=== PATIENT | female | born 1955 | race Caucasian/White ===

== ENCOUNTER → 2018-04-15 | Outpatient (CLI) | payer SELFPAY ==
--- NOTE | 2018-04-15 10:53 | RAD ---
EXAM DESCRIPTION: Knee,Left Complete CLINICAL HISTORY: 63 years Female, PAIN IN LEFT KNEE TECHNIQUE: 4 views of the left knee were performed. COMPARISON: None available. FINDINGS: The visualized bones appear well mineralized. No acute fracture or dislocation. No evidence of suprapatellar joint effusion. The soft tissues appear grossly unremarkable. 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 Chondrocalcinosis is noted. IMPRESSION: Tricompartmental osteoarthritis worse in the medial tibiofemoral compartment. Chondrocalcinosis is noted. Electronically signed by: Alayna Small MD 04/15/2018 10:51 AM CDT
--- NOTE | 2018-04-15 10:53 | RAD ---
EXAM DESCRIPTION: Pelvis CLINICAL HISTORY: 63 years Female, PAIN IN LEFT HIP COMPARISON: None. TECHNIQUE: AP radiograph of the pelvis was performed. FINDINGS: The pelvic ring appears grossly intact on this single AP radiograph. No acute fracture or dislocation. Bilateral sacroiliac joints appear normal. Bilateral hip joints appear normal. The visualized lumbo-sacral spine demonstrates mild degenerative changes. IMPRESSION: Single AP radiograph of the pelvis demonstrates grossly intact pelvic ring. Electronically signed by: Alayna Small MD 04/15/2018 10:52 AM CDT
== END ==
LOC: RAD 09:16
PROVIDERS: ATTEND Orthopaedic Surgery
DX: M17.12 Unilateral primary osteoarthritis, left knee (principal); M25.562 Pain in left knee; M25.552 Pain in left hip

== ENCOUNTER 2018-08-07 05:01 | Inpatient (IN) | payer OTHER ==
--- NOTE | 2018-08-03 14:22 | HP ---
CHIEF COMPLAINT: Left knee pain. HISTORY OF PRESENT ILLNESS: Janette is a 63 year-old female with a history of severe knee pain. Janette's knee pain has been getting progressively worse and she has had conservative measures inclusive of both injections and arthroscopy. Unfortunately she has failed to gain relief. Because of her failure of relief she has requested operative intervention. After discussing the risks, benefits, and alternatives to that she has given informed consent for that. PAST SURGICAL HISTORY: 1. Knee arthroscopy. CURRENT MEDICATIONS: 1. Potassium. 2. Singulair. 3. Tylenol #4. ALLERGIES: NO KNOWN DRUG ALLERGIES. CODE STATUS: FULL CODE. IMMUNIZATIONS: Up to date. FAMILY HISTORY: None pertinent to today's complaints. SOCIAL HISTORY: She does not drink or use illicit drugs. She does smoke. REVIEW OF SYSTEMS: Negative except as indicated in History of Present Illness. PHYSICAL EXAMINATION: VITAL SIGNS: Blood pressure 149/72, pulse 63. Height 5' 6", weight 213. MENTAL STATUS: The patient is awake, alert, and is able to give a good history and participate in the physical. The patient is oriented to person, place and time. SKIN: Normal tone and turgor. HEENT: Normocephalic, atraumatic. Pupils equal, round and reactive. Mucosal membranes are moist. NECK: Normal range of motion. No thyromegaly, no lymphadenopathy. CHEST: Normal respiratory excursion. CARDIAC: Regular rate and rhythm. No murmurs, rubs or gallops. MUSCULOSKELETAL: She is extremely tender to palpation both medially and laterally. She has extension that is full but flexion is to about 100 degrees. She has crepitus throughout her range of motion. She has no varus, valgus, anterior or posterior laxity. There is very slight varus deformity. Bilateral upper extremities show full active range of motion without pain. She has intact sensation in both. She has 5/5 strength in both extremities and they are warm and well perfused. The right lower extremity shows full range of motion in the hip. Sensation is intact. It is warm and well perfused. X-RAYS: X-rays show arthritis but no acute bony abnormality. ASSESSMENT: 1. Arthritis. PLAN: The plan at this point is for total knee arthroplasty. We have discussed the risks, benefits, and alternatives to that and she has given informed consent for that. #[id number] [facility]
[2018-08-07] MEDS ORDERED: ceFAZolin SODIUM 1 GM VIAL ONE ×2 (06:14→06:24)
[2018-08-07] MEDS ORDERED: TRANEXAMIC ACID 1,000 MG/10 ML VIAL ONE ×2 (06:23→06:36)
[2018-08-07] MEDS ORDERED: SODIUM CHL 0.9% 100ML MINI-BAG 100 ML IVPB ONE (06:23)
[2018-08-07] MEDS ORDERED: LACTATED RINGERS 1,000 ML ONE (06:23)
[2018-08-07] MEDS ORDERED: SODIUM CHLORIDE 0.9% 250ML 250 ML ONE ×3 (06:24→19:45)
[2018-08-07] MEDS ORDERED: VANCOMYCIN HCL INJ 1,000 MG VIAL IVPB ONE ×3 (06:24→19:45)
[2018-08-07] MEDS ORDERED: SODIUM CHLORIDE 0.9% 100ML 100 ML IVPB ONE (06:24)
[2018-08-07] MEDS ORDERED: LEVALBUTEROL NEBS 1.25 MG/3 ML VIAL NEB ONE ×2 (06:26→09:51)
[2018-08-07] MEDS ORDERED: MIDAZOLAM INJ 2 MG/2 ML VIAL ONE (06:26)
[2018-08-07] MEDS ORDERED: fentaNYL CITRATE INJ 50 MCG/ML AMP ONE (06:27)
[2018-08-07] MEDS ORDERED: ACETAMINOPHEN IV 1000MG 100 ML ONE (06:27)
[2018-08-07] MEDS ORDERED: MORPHINE SULF *EPIDURAL* 1 MG/ML VIAL ONE (06:27)
[2018-08-07] MEDS ORDERED: BISACODYL SUPPOSITORY 10 MG PR PRN (07:00)
[2018-08-07] MEDS ORDERED: MORPHINE PCA 1 MG/ML 100 ML BAG IVPB SCH (07:00)
[2018-08-07] MEDS ORDERED: MORPHINE SULFATE INJ 10 MG/ML VIAL IM PRN (07:00)
[2018-08-07] MEDS ORDERED: PROMETHAZINE HCL INJ 25 MG in SODIUM CHLORIDE 0.9% 50ML 50 ML IVPB PRN (07:00)
[2018-08-07] MEDS ORDERED: traMADol HCL 50 MG TAB PO PRN (07:00)
[2018-08-07] MEDS ORDERED: ALUMINUM & MAGNESIUM HYDROXIDE 30 ML UD PO PRN (07:00)
[2018-08-07] MEDS ORDERED: PROMETHAZINE HCL INJ 12.5 MG in SODIUM CHLORIDE 0.9% 50ML 50 ML IVPB PRN (07:00)
[2018-08-07] MEDS ORDERED: MORPHINE SULFATE INJ 10 MG/ML VIAL IV PRN (07:00)
[2018-08-07] MEDS ORDERED: ACETAMINOPHEN 500 MG TAB PO PRN (07:00)
[2018-08-07] MEDS ORDERED: ZOLPIDEM TARTRATE 5 MG TAB PO PRN (07:00)
[2018-08-07] MEDS ORDERED: NALOXONE HCL INJ 0.4 MG/ML VIAL IV PRN (07:00)
[2018-08-07] MEDS ORDERED: BENZOCAINE-MENTH LOZ (CEPACOL) 1 EA LOZ MT PRN (07:00)
[2018-08-07] MEDS ORDERED: ACETAMINOPHEN 325 MG TAB PO PRN (07:00)
[2018-08-07] MEDS ORDERED: MAGNESIUM HYDROXIDE 30 ML UD PO PRN (07:00)
[2018-08-07] MEDS ORDERED: TRANEXAMIC ACID INJ 1,000 MG in SODIUM CHLORIDE 0.9% 100ML 100 ML IVPB ONE (07:00)
[2018-08-07] MEDS ORDERED: DEX 5% W/NACL 0.45% 1000ML 1,000 ML IVS PRN (07:00)
[2018-08-07] MEDS ORDERED: TEMAZEPAM 15 MG CAP PO PRN (07:00)
[2018-08-07] MEDS ORDERED: SODIUM CHLORIDE 0.9% (FLUSH) 10 ML SYG IV PRN (07:00)
[2018-08-07] MEDS: ceFAZolin SODIUM 1 GM VIAL ONE ×2 (08:00→08:46)
[2018-08-07] MEDS: VANCOMYCIN HCL INJ 1,000 MG VIAL IVPB ONE ×2 (08:00→08:46)
[2018-08-07] MEDS: BUPIVACAINE LIPOSOME 13.3 MG/ML VIAL INJ ONE ×2 (08:01→08:44)
[2018-08-07] MEDS: BUPIVACAINE 0.5% 30 ML VIAL INJ ONE ×2 (08:01→08:44)
[2018-08-07] MEDS ORDERED: BUPIVACAINE LIPOSOME 13.3 MG/ML VIAL INJ ONE (08:49)
[2018-08-07] MEDS ORDERED: ELECTROLYTE-A 1,000 ML IVS ONE (09:12)
[2018-08-07] MEDS ORDERED: METOCLOPRAMIDE HCL INJ 10 MG/2 ML VIAL IV ONE (10:00)
[2018-08-07] MEDS ORDERED: LIDOCAINE 1% 10 ML VIAL INJ ONE (10:00)
[2018-08-07] MEDS ORDERED: raNITIdine HCL INJ 25 MG/ML VIAL IV ONE (10:00)
[2018-08-07] MEDS ORDERED: ePHEDrine SULF 50 MG/ML IV ONE (10:00)
[2018-08-07] MEDS ORDERED: DEXAMETHASONE INJ 10 MG/ML VIAL IV ONE (10:00)
--- NOTE | 2018-08-07 10:26 | OP ---
DATE OF PROCEDURE: 08/07/18 PREOPERATIVE DIAGNOSIS: 1. Osteoarthritis of the left knee. POSTOPERATIVE DIAGNOSIS: 1. Osteoarthritis of the left knee. PROCEDURE: 1. Left total knee arthroplasty. SURGEON: Travis Cedillo MD. BUSINESS MACHINE OPERATOR: Seun Valadez CST, SA-C. ANESTHESIA: General anesthesia. COMPLICATIONS: None. FINDINGS: Severe arthritis of the knee. INDICATION: Janette has a long history of severe pain in the knee which has been refractory to conservative measures. She has requested operative intervention secondary to that failure. After discussing the risks, benefits and alternatives to that, the patient has given informed consent for total knee arthroplasty. PROCEDURE: The patient was brought to the Operating Room and placed in supine position. General anesthesia was induced and the patient's leg was sterilely prepped and draped. Following prepping and draping, the distal femur was exposed and using an intramedullary guide, the distal femoral cut was made. The appropriate sized cutting block was measured, pinned into place, and the anterior, posterior, and chamfer cuts were made. The ACL was transected and the tibia was subluxed. Both the medial and lateral menisci were removed. An intramedullary guide was used to make the proximal tibial cut. The appropriate sized base plate was placed and a trial polyethylene was placed. The trial femur was placed, the knee was reduced, and the knee was taken through a range of motion. The knee was stable in anterior, posterior, varus and valgus stress. The patella tracked anatomically without evidence of subluxation or dislocation. After trialing, the trial components were removed and the bony surfaces were thoroughly irrigated with saline. Following irrigation, the surfaces were dried and the final components were cemented into place. The excess cement was removed and the remaining cement was allowed to cure. The knee was again taken through a range of motion to confirm stability. The wound was then irrigated with saline and closure was performed using PDS to approximate the arthrotomy followed by closure of the subcutaneous tissues with a combination of running and interrupted Monocryl sutures. Sterile dressing was placed. The patient was awoken from anesthesia and taken to Recovery. POSTOPERATIVE PLAN: The patient will be weight-bearing as tolerated on postoperative day 1. COMPONENTS: Zogenix Triathlon knee, size 4 femur, size 4 tibia, 11 mm insert. #[id number] [facility]
--- NOTE | 2018-08-07 11:58 | RAD ---
EXAM DESCRIPTION: Knee,Left 2 or More Views CLINICAL HISTORY: TKA COMPARISON: 15 Apr 2018 TECHNIQUE: 2 views left FINDINGS: A left total knee arthroplasty is observed in place. Positioning is near-anatomic. Postoperative air is observed anteriorly IMPRESSION: New left total knee arthroplasty. Electronically signed by: Yaron Portillo MD 08/07/2018 11:56 AM CDT
[2018-08-07] MEDS: ONDANSETRON INJ 4 MG/2 ML VIAL IV PRN (12:43)
[2018-08-07] MEDS: CELECOXIB 100 MG CAP PO SCH ×2 (13:33→18:42)
[2018-08-07] MEDS: MAGNESIUM OXIDE 400 MG TAB PO SCH (13:33)
[2018-08-07] MEDS: IV SET AND CAP CHANGE INJ INJ SCH (13:33)
[2018-08-07] MEDS ORDERED: ceFAZolin SODIUM 2 GRAMS PREMI 50 ML IVPB ONE ×3 (13:38→19:45)
[2018-08-07] MEDS: ceFAZolin SODIUM 2 GRAMS PREMI 2 GM in PREMIX BAG 1 BAG IVPB SCH ×2 (14:02→22:01)
--- NOTE | 2018-08-07 15:06 | CONS ---
SUPERVISING PHYSICIAN: Meng Amado MD DATE OF CONSULTATION: 08/07/18 CHIEF COMPLAINT: Left knee pain. HISTORY OF PRESENT ILLNESS: This is a 63-year-old female patient who has a history of severe knee pain. She has actually had a right knee arthroscopy in the past. In her left knee, she has had injections and has failed to gain relief with conservative measures. Due to her ongoing pain, she requested Dr. Travis Cedillo, orthopedic surgeon, for surgical intervention. Today, she had a left total knee arthroplasty. There were no complications intraoperatively and I am seeing the patient postoperatively on the Medical/Surgical Floor. PAST MEDICAL HISTORY: 1. Hypokalemia on supplementation. PAST SURGICAL HISTORY: 1. Right knee arthroscopy. 2. Cholecystectomy. 3. Thumb surgery. 4. Appendectomy. 5. Tubal ligation. CURRENT MEDICATIONS: 1. Potassium. 2. Tylenol #4. ALLERGIES: NO KNOWN DRUG ALLERGIES. CODE STATUS: Full code. FAMILY HISTORY: Noncontributory. SOCIAL HISTORY: She lives in [place]. She sees Dr. Wharton. She is . She denies any tobacco, ETOH or illicit drug use. REVIEW OF SYSTEMS: Negative except as per history of present illness. PHYSICAL EXAMINATION: VITAL SIGNS: Temperature 96.7. Heart rate 70. Blood pressure 155/73. Respiratory rate 14. O2 saturation 95% on room air. GENERAL: This is a 63-year-old female patient who is lying in her hospital bed. She is in no acute distress. HEENT: Normocephalic, atraumatic. Pupils are equal and reactive. Oropharynx is clear. NECK: Supple without mass. RESPIRATORY: Essentially clear to auscultation bilaterally. CARDIOVASCULAR: Regular rate and rhythm. GASTROINTESTINAL: Abdomen is soft, nondistended, nontender. Bowel sounds are hypoactive. EXTREMITIES: Her left knee is utilizing the CPM machine. She has an Iceman in place. Her bilateral pedal pulses are +2. NEUROLOGIC: She is slightly lethargic, but oriented times three. LABORATORY: Previous labs and films have been reviewed via the EMR. IMPRESSION: 1. Left knee pain status post left total knee arthroplasty per Dr. Travis Cedillo , orthopedic surgeon, postoperative day #0. 2. Osteoarthritis. 3. Hypokalemia. PLAN: We will continue present supportive care. Orthopedic issues are per Dr. Travis Cedillo, orthopedic surgeon. She will begin her strengthening and conditioning per physical therapy tomorrow. I have restarted her home medications. Due to her history of hypokalemia, I will check her electrolytes in the morning. Otherwise, we will continue to monitor the patient closely and follow as needed. Dr. Amado is the collaborating physician and available for consultation. #[id number] [facility]
[2018-08-07] MEDS: VANCOMYCIN HCL INJ 1,000 MG in SODIUM CHLORIDE 0.9% 250ML 250 ML IVPB SCH (18:32)
[2018-08-07] MEDS ORDERED: ENOXAPARIN SODIUM 30 MG/0.3 ML SYG SUBCU ONE (19:45)
[2018-08-07] MEDS: DOCUSATE CALCIUM 240 MG CAP PO SCH (20:38)
[2018-08-07] MEDS: POTASSIUM CHLORIDE 10 MEQ TAB PO SCH (20:38)
[2018-08-07] MEDS: ENOXAPARIN SODIUM 30 MG/0.3 ML SYG SUBCU SCH (22:50)
[2018-08-08] MEDS: ceFAZolin SODIUM 2 GRAMS PREMI 2 GM in PREMIX BAG 1 BAG IVPB SCH (05:29)
[2018-08-08] MEDS: VANCOMYCIN HCL INJ 1,000 MG in SODIUM CHLORIDE 0.9% 250ML 250 ML IVPB SCH (06:38)
[2018-08-08] MEDS: ONDANSETRON INJ 4 MG/2 ML VIAL IV PRN (06:38)
[2018-08-08] MEDS: CELECOXIB 100 MG CAP PO SCH ×2 (09:10→17:23)
[2018-08-08] MEDS: MAGNESIUM OXIDE 400 MG TAB PO SCH (09:46)
[2018-08-08] MEDS: HYDROcodone 5MG/APAP 325MG 1 EA TAB PO PRN ×4 (09:46→22:11)
[2018-08-08] MEDS: ENOXAPARIN SODIUM 30 MG/0.3 ML SYG SUBCU SCH ×2 (11:27→23:06)
[2018-08-08] MEDS: CYCLOBENZAPRINE HCL 10 MG TAB PO PRN (14:36)
--- NOTE | 2018-08-08 18:25 | PN ---
DATE: 08/08/18 SUPERVISING PHYSICIAN: Meng Amado M.D. SUBJECTIVE: The patient is lying in bed. Her left leg is on a CPM machine. She has no complaints of shortness of breath, nausea, vomiting, diarrhea or constipation. She does say the left knee hurts but not more than what she expected after surgery. OBJECTIVE: VITAL SIGNS: She is afebrile, heart rate 70, blood pressure 126/79, respiratory rate 18, O2 sat 92% on room air. RESPIRATORY: Essentially clear to auscultation bilaterally. CARDIAC: Regular rate and rhythm. GASTROINTESTINAL: Abdomen is soft, nondistended, non-tender.Bowel sounds are positive. EXTREMITIES: There is an Nikolas bandage to the left knee area. Her dressing is dry and intact. She is on the CPM machine at this time. Bilateral pedal pulses are palpable at +2. NEUROLOGIC: She is awake, alert and oriented times three. LABORATORY: Hemoglobin 13.4, hematocrit 39.4. Electrolytes are basically within normal limits with her glucose being slightly high at 131. All other labs and films have been reviewed via the EMR. ASSESSMENT: 1. Left knee pain status post left total knee arthroplasty per Dr. Travis Cedillo , orthopedic surgeon, postoperative day #1. 2. Osteoarthritis. 3. History of hypokalemia. PLAN: We will continue present supportive care. Orthopedic issues will be per Dr. Cedillo, orthopedic surgeon. She will continue with her strengthening and conditioning per Physical Therapy. We have encouraged good pulmonary hygiene. Her potassium was okay on her lab today, so will continue with her home dosing of potassium. Plan for discharge this weekend with physical therapy in [place]. Otherwise will continue to monitor closely and follow as needed. Dr. Amado is the collaborating physician available for consultation. #[id number] [facility]
[2018-08-08] MEDS: DOCUSATE CALCIUM 240 MG CAP PO SCH (20:44)
[2018-08-08] MEDS: POTASSIUM CHLORIDE 10 MEQ TAB PO SCH (20:44)
[2018-08-09] MEDS: HYDROcodone 5MG/APAP 325MG 1 EA TAB PO PRN ×4 (03:57→20:04)
[2018-08-09] MEDS: CYCLOBENZAPRINE HCL 10 MG TAB PO PRN ×2 (03:57→14:49)
[2018-08-09] MEDS: CELECOXIB 100 MG CAP PO SCH ×2 (07:45→16:28)
[2018-08-09] MEDS: SODIUM CHLORIDE 0.9% (FLUSH) 10 ML SYG IV SCH ×2 (09:13→20:42)
[2018-08-09] MEDS: MAGNESIUM OXIDE 400 MG TAB PO SCH (09:13)
--- NOTE | 2018-08-09 10:09 | PN ---
DATE: 08/07/18 POSTOPERATIVE CHECK SUBJECTIVE: Ms. Sims is doing well and has no pain right now. She does have a little bit of nausea. OBJECTIVE: Afebrile. Vital signs stable. Dressing is clean, dry and intact. ASSESSMENT: Status post total knee arthroplasty. PLAN: The plan at this point is to begin weightbearing as tolerated on postoperative day 1. #[id number] [facility]
--- NOTE | 2018-08-09 10:10 | PN ---
DATE: 08/08/18 SUBJECTIVE: Ms. Sims is improved and her nausea is improved. Her pain is well controlled. OBJECTIVE: Afebrile. Vital signs stable. Dressing is clean, dry and intact. ASSESSMENT: Status post total knee arthroplasty. PLAN: The plan at this point is to continue with weightbearing as tolerated and increase her CPM as tolerated. #[id number] [facility]
--- NOTE | 2018-08-09 10:12 | PN ---
DATE: 08/09/18 SUBJECTIVE: Ms. Sims is doing really well and has been up ambulating to the nurses station. Her pain is well controlled with p.o. medications. OBJECTIVE: Afebrile. Vital signs stable. Wound is clean. There are no signs or symptoms of infection. ASSESSMENT: Status post total knee arthroplasty. PLAN: The plan at this point is for continued physical therapy. She will be discharged today and has been has been instructed to return immediately should any change in her condition occur. #[id number] [facility]
[2018-08-09] MEDS: ENOXAPARIN SODIUM 30 MG/0.3 ML SYG SUBCU SCH ×2 (10:53→22:36)
--- NOTE | 2018-08-09 13:15 | PN ---
SUPERVISING PHYSICIAN: Meng Amado M.D. DATE: 08/09/18 SUBJECTIVE: The patient is lying in bed. Her left leg is in the CPM machine. She has no complaints of chest pain, shortness of breath, nausea, vomiting, diarrhea. She has some postoperative surgical pain, but it is being controlled with her pain medications. We discussed her discharge and plan for discharge tomorrow as long as she continues with her present physical therapy. OBJECTIVE: VITAL SIGNS: Temperature 98.4. Pulse 69. Blood pressure 133/74. Respiratory rate 20. O2 saturation 97% on room air. RESPIRATORY: Essentially clear to auscultation bilaterally. CARDIAC: Regular rate and rhythm. EXTREMITIES: The left leg is in the CPM machine. Her dressing to her left knee is dry and intact. There is minimal swelling and no erythema to the site. Bilateral pedal pulses are +2. NEUROLOGIC: She is awake, alert and oriented times three. LABORATORY: There are no labs or films to report at this time. ASSESSMENT: 1. Left knee pain status post left total knee arthroplasty per Dr. Travis Cedillo , orthopedic surgeon, postoperative day #2. 2. Osteoarthritis. 3. History of hypokalemia on daily supplementation. PLAN: We will continue present supportive care. Orthopedic issues will be per Dr. Cedillo, orthopedic surgeon. She will continue with her strengthening and conditioning with Physical Therapy. We will continue to encourage good pulmonary hygiene. She is in agreement for discharge plans for tomorrow after her morning physical therapy and she will begin with [facility] on Sunday. Otherwise, we will continue to monitor closely and follow as needed. Dr. Amado is the collaborating physician available for consultation. #[id number] [facility]
[2018-08-09] MEDS: DOCUSATE CALCIUM 240 MG CAP PO SCH (20:42)
[2018-08-09] MEDS: POTASSIUM CHLORIDE 10 MEQ TAB PO SCH (20:42)
[2018-08-10] MEDS: CYCLOBENZAPRINE HCL 10 MG TAB PO PRN (04:09)
[2018-08-10] MEDS: HYDROcodone 5MG/APAP 325MG 1 EA TAB PO PRN ×2 (04:09→07:34)
[2018-08-10] MEDS: IV SET AND CAP CHANGE INJ INJ SCH (06:01)
[2018-08-10] MEDS: CELECOXIB 100 MG CAP PO SCH (07:33)
[2018-08-10] MEDS: MAGNESIUM OXIDE 400 MG TAB PO SCH (07:34)
[2018-08-10 12:15] VITALS: BP 105/68; TEMP 98; O2SAT 97
--- NOTE | 2018-08-10 12:41 | DS ---
SUPERVISING PHYSICIAN: Meng Amado M.D. DISCHARGE DIAGNOSIS: 1. Left knee pain status post left total knee arthroplasty per Dr. Travis Cedillo , orthopedic surgeon, postoperative day #3. 2. Osteoarthritis. 3. History of hypokalemia on daily supplementation. HISTORY OF PRESENT ILLNESS: This is a 63-year-old female patient who has a history of severe knee pain. She has actually had a right knee arthroscopy in the past. In her left knee, she has had injections and failed to gain relief with conservative measures. Due to her ongoing pain, she requested Dr. Travis Cedillo, orthopedic surgeon, for surgical intervention. On the day of admission she had a left total knee arthroplasty. There were no complications intraoperatively. HOSPITAL COURSE: Postoperatively she progressed through her physical therapy without any problems. She does have a history of hypokalemia and takes supplementation. Potassium was within normal limits. Vital signs remained stable. At this point she can be discharged home with outpatient physical therapy. DISCHARGE PLAN: The patient will be discharged home in stable condition. She is to start her physical therapy with [facility] on Sunday. She has all of her needed equipment. She will be discharged home with 8 additional days of Xarelto. I have also given her a prescription for Flexeril as well as Dr. Cedillo has given her some Hydrocodone. She can resume her previous medications as well as her previous diet. She has a followup appointment with Dr. Cedillo on 08/23/18 at 9:30 AM. She is to followup with Dr. Wharton, her primary care physician, in the next 2 weeks. She is to return to the hospital or call Dr. Cedillo's office or Dr. Wharton's office for any problems or complications. Her activity will be per Physical Therapy. DISCHARGE MEDICATIONS: 1. Acetaminophen otherwise codeine. 2. Potassium chloride. 3. Cyclobenzaprine. 4. Hydrocodone. 5. Xarelto. #[id number] [facility]
[2018-08-10] MEDS ORDERED: BISACODYL SUPPOSITORY 10 MG PR ONE (21:00)
[2018-08-10] MEDS ORDERED: MAGNESIUM HYDROXIDE 30 ML UD PO ONE (21:00)
== END 2018-08-10 11:30 | disposition home or self-care (01) | DRG 470 ==
LOC: AMB 05:01 → MS 11:05
PROVIDERS: ADMIT Orthopaedic Surgery; ATTEND Nurse Practitioner Acute Care
PROC: 0SRD0J9 Replacement of Left Knee Joint with Synthetic Substitute, Cemented, Open Approach (ICD-10-PCS; principal; 2018-08-07 07:16)
DX: M17.12 Unilateral primary osteoarthritis, left knee (principal); E87.6 Hypokalemia